=== PATIENT | male | born 1995 | race Caucasian/White ===

== ENCOUNTER 2023-01-14 14:57 | Emergency (ER) | payer OTHER, MEDICAID, SELFPAY ==
[2023-01-14 15:02] VITALS: BP 123/82; PULSE 84; RESP 18; TEMP 36.9; O2SAT 99; BMI 20.7
--- NOTE | 2023-01-14 15:12 | ED_ITS ---
HPI - Skin/Abscess/Foreign Bdy <Shahid Frazier PA-C - Last Filed: 01/14/23 15:38> General Chief complaint: Skin/Abscess/Foreign Body Stated complaint: scabies? Time Seen by Provider: 01/14/23 15:09 Source: patient and family Mode of arrival: Ambulatory History of Present Illness HPI narrative: This is a 27-year-old male presents emergency department due to suspected scabies infection. He reports it affecting the webs his toes as well as ?all over including his bilateral arms and scalp. States that is very itchy and has been affecting him for about a week or so. Denies any fevers, nausea, vomiting, or any other concerning signs or symptoms. Related Data Previous Rx's Medication Instructions Recorded ivermectin 3 mg tablet 12,000 mcg PO Q2W 2 doses #8 tabs 01/14/23 ivermectin 3 mg tablet 13,916 mcg PO Q2W 2 doses #10 tabs 01/14/23 permethrin 5 % topical cream 1 applic topical Q14D 2 doses #60 01/14/23 grams Allergies Allergy/AdvReac Type Severity Reaction Status Date / Time No Known Drug Allergies Allergy Verified 01/14/23 15:02 Review of Systems <Shahid Frazier PA-C - Last Filed: 01/14/23 15:38> Review of Systems Narrative: GENERAL: Denies chills, fatigue, malaise, fever, sweats. HEENT: Denies sinus pain, ear pain, sore throat, difficulty swallowing, dizziness. RESPIRATORY: Denies dyspnea, cough, wheezing, hemoptysis, sputum. CARDIOVASCULAR: Denies chest pain, palpitations, orthopnea, edema, GASTROINTESTINAL: Denies nausea, vomiting, abdominal pain, diarrhea, constipation, melena. : Denies dysuria, frequency, incontinence, hematuria, urinary retention. MUSCULOSKELETAL: denies weakness, joint pain, or bony pain SKIN: Reports rash and pruritus NEUROLOGIC: Denies weakness, headache, numbness, change in speech, confusion, seizures, incoordination. PSYCHIATRIC: No concerning psychosocial issues. 12 point review of systems is negative except for those stated above Patient History <Shahid Frazier PA-C - Last Filed: 01/14/23 15:38> Social History Smoking Status: Current every day smoker Smoking Status: Current every day smoker tobacco type: cigarettes Substance Use Type: opiates Exam <BENJAMIN Lomeli Last Filed: 01/14/23 15:38> Narrative Exam Narrative: GENERAL: Well-developed patient, in mild distress. HEAD: Atraumatic. Normocephalic. EYES: Pupils equal round and reactive. Extraocular motions intact. No scleral icterus. No injection or drainage. ENT: Nose without bleeding, purulent drainage. Throat without erythema, tonsillar hypertrophy or exudate. Airway patent. NECK: Trachea midline. Non tender CARDIOVASCULAR: Regular rate and rhythm without murmurs, gallops, or rubs. RESPIRATORY: Clear to auscultation. Breath sounds equal bilaterally. No wheezes, rales, or rhonchi. GASTROINTESTINAL: Abdomen soft, non-tender, nondistended. EXTREMITIES: No edema or joint tenderness. BACK: Nontender without deformity or crepitance. No flank tenderness. NEURO: AOx3. SKIN: Linear rashes affecting the webs of the toes as well as bilateral forearms and scalp with evidence of excoriations Initial Vital Signs Initial Vital Signs: Vital Signs Temperature 98.5 F 01/14/23 15:02 Pulse Rate 84 01/14/23 15:02 Respiratory Rate 18 01/14/23 15:02 Blood Pressure 123/82 01/14/23 15:02 Pulse Oximetry 99 01/14/23 15:02 Oxygen Delivery Method Room Air 01/14/23 15:02 <Ford Christensen DO - Last Filed: 01/14/23 18:14> Initial Vital Signs Initial Vital Signs: Vital Signs Temperature 98.5 F 01/14/23 15:02 Pulse Rate 84 01/14/23 15:02 Respiratory Rate 18 01/14/23 15:02 Blood Pressure 123/82 01/14/23 15:02 Pulse Oximetry 99 01/14/23 15:02 Oxygen Delivery Method Room Air 01/14/23 15:02 Course <BENJAMIN Lomeli Last Filed: 01/14/23 15:38> Orders Ordered: ED Orders 01/14/23 15:07 Consult to MARGARINE MAKER - Jigger Operator Stat Vital Signs Vital signs: Vital Signs - 8 hr 01/14/23 15:02 Temperature 98.5 F Pulse Rate 84 Respiratory Rate 18 Blood Pressure 123/82 Pulse Oximetry 99 Oxygen Delivery Method Room Air <Ford Christensen DO - Last Filed: 01/14/23 18:14> Orders Ordered: ED Orders 01/14/23 15:07 Consult to MARGARINE MAKER - Jigger Operator Stat Vital Signs Vital signs: Vital Signs - 8 hr 01/14/23 15:02 Temperature 98.5 F Pulse Rate 84 Respiratory Rate 18 Blood Pressure 123/82 Pulse Oximetry 99 Oxygen Delivery Method Room Air MDM - Skin/Abscess/Foreign Bdy <Shahid Frazier PA-C - Last Filed: 01/14/23 15:38> MDM Narrative Medical decision making narrative: MDM * differential diagnosis includes but not limited to scabies, lice, eczema, psoriasis * Prior records reviewed: Patient has not been here in the past * My lab interpretation: None obtained * My imgaing interpretation: None obtained * Clinical Decision Rules/Scores evaluated: None * Independent discussions with: None ED Course: This is a 27-year-old male presents to the emergency department due to suspected scabies infection. We will treat with topical permethrin cream as well as oral ivermectin to the extensive severity of the disease. No evidence of any underlying cellulitic or bacterial infections. Shared Decision Making: Discussed plan with patient who is comfortable with the plan. Social Considerations: None Disposition: Discharged to home Discharge Plan Departure Patient Disposition: Home Clinical Impression: Scabies Activity Restrictions/Additional Instructions: Thank you for coming to the [facility] Emergency Department today. Please apply the 1st treatment of the cream today. You may repeat this in 14 days if symptoms continue. I hope you feel better soon. Please follow up with your primary care provider within a week if your symptoms continue. If you do not have a primary care provider please contact the [facility] Resource line at [phone]. They will ask some questions about your medical history and help you get set up with a provider in the community. Prescriptions: New permethrin 5 % cream 1 applic topical Q14D Qty: 60 0RF Rx Instructions: apply second treatment 14 days after first treatment if live lice remain ivermectin 3 mg tablet 13,916 mcg PO Q2W Qty: 10 0RF ivermectin 3 mg tablet 12,000 mcg PO Q2W Qty: 8 0RF Rx Instructions: Please take 4 tabs today. If your symptoms continue please take 4 tabs in 2 weeks. Stand Alone Forms: Patient Portal/API ED Sign-out <Ford Christensen DO - Last Filed: 01/14/23 18:14> Cosign ED Attending Cosignature Attestation: I was immediately available in the department for consultation. Documentation has been reviewed. I agree with assessment and plan.
== END 2023-01-14 15:29 | disposition home or self-care (01) ==
PROVIDERS: Emergency Provider Physician Assistant Medical
DX: B86 Scabies (principal)
CPT/HCPCS: 99281; 99283